=== PATIENT | male | born 1965 | race Caucasian/White ===

== ENCOUNTER 2018-03-13 05:42 | Emergency (ER) | payer MEDICAID ==
[2018-03-13] MEDS: KETOROLAC 60 MG INJ IM (06:59)
== END 2018-03-13 07:21 | disposition home or self-care (01) ==
LOC: FTE 05:42
DX: M25.512 Pain in left shoulder (principal); E11.9 Type 2 diabetes mellitus without complications
CPT/HCPCS: 96372; 99284-25